=== PATIENT | female | born 1970 | race American Indian/Alaskan Native ===

== ENCOUNTER → 2025-03-24 15:29 | Outpatient (REF) | payer OTHER, SELFPAY | LOC: RAD 15:29 | PROVIDERS: ATTENDING PHYSICIAN Family Medicine | DX: K52.9 Noninfective gastroenteritis and colitis, unspecified (principal); R63.4 Abnormal weight loss; K62.5 Hemorrhage of anus and rectum | CPT/HCPCS: 74177; Q9967 ==

== ENCOUNTER 2025-04-10 06:11 | Day surgery (SDC) | payer OTHER, SELFPAY ==
[2025-04-10 13:15] VITALS: BMI 21.9
[2025-04-10 13:30] VITALS: BP 185/105
[2025-04-10 13:31] LABS: Glucose - Point of Care 181 mg/dl (70-99)
[2025-04-10 16:00] VITALS: BP 147/95
[2025-04-10 16:15] VITALS: BP 187/90
[2025-04-10 16:24] VITALS: BP 185/85
== END 2025-04-10 16:40 | disposition home or self-care (01) ==
LOC: SDS 06:11
PROVIDERS: ATTENDING PHYSICIAN Surgery
DX: C20 Malignant neoplasm of rectum (principal); K56.690 Other partial intestinal obstruction; K62.5 Hemorrhage of anus and rectum; I10 Essential (primary) hypertension
CPT/HCPCS: 45380; 82962; 88305; 88341; 88342

== ENCOUNTER → 2025-04-15 15:37 | Outpatient (REF) | payer OTHER, SELFPAY | LOC: RAD 15:37 | PROVIDERS: ATTENDING PHYSICIAN Surgery; FAMILY PHYSICIAN Family Medicine | DX: C20 Malignant neoplasm of rectum (principal) | CPT/HCPCS: 71250 ==

== ENCOUNTER → 2025-04-24 11:35 | Outpatient (REF) | payer OTHER, SELFPAY | LOC: MRI 3T 11:35 | PROVIDERS: ATTENDING PHYSICIAN Surgery; FAMILY PHYSICIAN Family Medicine | DX: C20 Malignant neoplasm of rectum (principal) | CPT/HCPCS: 72197; A9575 ==

== ENCOUNTER → 2025-06-30 07:00 | Outpatient (REF) | payer OTHER, SELFPAY | LOC: RAD 07:00 | PROVIDERS: ATTENDING PHYSICIAN Internal Medicine Hematology & Oncology; FAMILY PHYSICIAN Family Medicine | DX: C20 Malignant neoplasm of rectum (principal); D50.9 Iron deficiency anemia, unspecified | CPT/HCPCS: 71260; 74177; Q9967 ==

== ENCOUNTER 2025-07-15 06:13 | Day surgery (SDC) | payer OTHER, SELFPAY ==
[2025-07-14 14:37] VITALS: BMI 22.5
[2025-07-15 06:58] VITALS: BMI 22.5
[2025-07-15] MEDS: TYLENOL 1000 MG PO (07:00)
[2025-07-15] MEDS: NORMOSOL-R/PLASMALYTE-A 1000 IV (07:01)
[2025-07-15 07:03] LABS: Glucose - Point of Care 191 mg/dl (70-99)
[2025-07-15 07:06] VITALS: BP 145/101
[2025-07-15 08:31] VITALS: BP 145/101; BP 147/80
[2025-07-15 08:45] VITALS: BP 138/83
[2025-07-15 08:53] LABS: Glucose - Point of Care 182 mg/dl (70-99)
[2025-07-15 09:00] VITALS: BP 145/84
[2025-07-15 09:10] VITALS: BP 147/80
[2025-07-15 09:25] VITALS: BP 141/78
== END 2025-07-15 10:03 | disposition home or self-care (01) ==
LOC: SDS 06:13
PROVIDERS: ATTENDING PHYSICIAN Surgery; FAMILY PHYSICIAN Family Medicine
DX: C20 Malignant neoplasm of rectum (principal)
CPT/HCPCS: 36561; 71045; 76000; 82962; 93005

== ENCOUNTER → 2025-08-05 13:02 | Outpatient (REF) | payer OTHER, SELFPAY | LOC: RAD 13:02 | PROVIDERS: ATTENDING PHYSICIAN Obstetrics & Gynecology; FAMILY PHYSICIAN Family Medicine; REFERRING PHYSICIAN Nurse Practitioner Adult Health | DX: Z12.31 Encounter for screening mammogram for malignant neoplasm of breast (principal); C20 Malignant neoplasm of rectum; D50.9 Iron deficiency anemia, unspecified | CPT/HCPCS: 74019; 77063; 77067 ==